=== PATIENT | female | born 1945 | race Caucasian/White ===

== ENCOUNTER 2018-07-10 12:18 | Inpatient (IN) ==
[2018-07-10] MEDS ORDERED: SODIUM CHLORIDE 0.9% 1,000 ML IV STA (12:34)
[2018-07-10 13:16] LABS: Basophils # 0.1 10*3/uL (0.0-0.2); Basophils % 0.5 % (0.0-0.8); Eosinophils % 0.1 % (0.00-10.9); Hematocrit 26.5 VOL% (35.7-47.0); Immature Granulocytes % 0.9 %; Immature Granulocytes Absolute 0.13 #; Lymphocytes # 1.8 10*3/uL (1.4-4.0); Lymphocytes % 12.1 % (21.3-54.2); Mean Corpuscular HGB Conc 30.2 GM/DL (32-36); Mean Corpuscular Hemoglobin 23 PG (27-34); Mean Corpuscular Volume 75.5 FL (87-102); Mean Platelet Volume 10.4 FL (9.6-12.0); Monocytes % 6.6 % (1.7-12.7); Neutrophils # 11.9 10*3/uL (1.4-7.4); Neutrophils % 79.8 % (38.7-73.9); Platelet Count 424 T/CUMM (130-400); Red Blood Count 3.51 MC/CUMM (3.8-5.5); Red Cell Distribution Width 17.2 % (9.3-17.3); White Blood Count 14.9 T/CUMM (4-12)
[2018-07-10 13:32] LABS: PT Patient Result 10.9 SECS
[2018-07-10 13:45] LABS: Albumin 3.9 G/DL (3.4-5.0); Bilirubin,Total 0.6 MG/DL (0.2-1.0); Calcium 8.1 MG/DL (8.5-10.1); Osmolality,Calculated 285.7 MOS/KG (273-304); Potassium 3.9 MMOL/L (3.5-5.1)
[2018-07-10] MEDS ORDERED: ONDANSETRON 4 MG/2 ML VIAL IV PRN (13:57)
[2018-07-10] MEDS ORDERED: NICOTINE 21 MG/24 HR PATCH TRANSDERM PRN (13:57)
[2018-07-10] MEDS ORDERED: ACETAMINOPHEN 325 MG TABLET PO PRN (13:57)
[2018-07-10] MEDS ORDERED: SODIUM CHLORIDE 0.9% 1,000 ML IV PRN (14:01)
[2018-07-10] MEDS: SODIUM CHLORIDE 0.9% 1,000 ML IV SCH (14:52)
[2018-07-10] MEDS: PANTOPRAZOLE 40 MG VIAL IV SCH (14:52)
[2018-07-10] MEDS: SERTRALINE 100 MG TABLET PO SCH (20:18)
[2018-07-10] MEDS: OLANZapine 5 MG TABLET PO SCH (20:18)
[2018-07-10 20:40] LABS: Apearance,Urine CLOUDY (Clear); Bacteria,Urine Few /HPF (Few); Bilirubin,Urine Negative (Negative); Blood, Urine Negative (Negative); Glucose,Urine (UA) Negative (Negative); Hyaline Casts,Urine 9 /LPF (0-3); Ketones,Urine Negative (Negative); Mucus,Urine Few /LPF (Occasional); Nitrite,Urine Negative (Negative); Protein,Urine 30 MG/DL; RBC,Urine 1 /HPF (0-4); Squamous Epithelial Cell,Urine Occasional /HPF (0-10); Urine Color Amber (Yellow); Urine Specific Gravity 1.016 (1.001-1.035); Urine Urobilinogen < 2.0 EU/DL (0.2-1.0); WBC,Urine 1 /HPF (0-6)
[2018-07-11] MEDS ORDERED: SODIUM CHLORIDE 0.9% 1,000 ML IV PRN (01:21)
[2018-07-11] MEDS: LURASIDONE 40 MG TABLET PO SCH ×2 (06:59→20:35)
[2018-07-11] MEDS: PANTOPRAZOLE 40 MG VIAL IV SCH (08:15)
[2018-07-11 10:24] LABS: Hematocrit 31.5 VOL% (35.7-47.0); Hemoglobin 10.1 GM/DL (12.0-16.0)
[2018-07-11 11:54] LABS: Osmolality,Calculated 279.7 MOS/KG (273-304); Potassium 3.9 MMOL/L (3.5-5.1)
[2018-07-11] MEDS ORDERED: PROPOFOL 200 MG/20 ML VIAL IV ONE (12:54)
[2018-07-11] MEDS ORDERED: LIDOCAINE 100 MG/5 ML SYRINGE ONE (12:54)
[2018-07-11] MEDS: SODIUM CHLORIDE 0.9% 1,000 ML IV SCH (16:55)
[2018-07-11 17:02] LABS: Ferritin 13.5 ng/ml (8-252)
[2018-07-11 18:34] LABS: Hematocrit 35.1 VOL% (35.7-47.0)
[2018-07-11] MEDS: SERTRALINE 100 MG TABLET PO SCH (20:35)
[2018-07-11] MEDS: OLANZapine 5 MG TABLET PO SCH (20:35)
[2018-07-12 01:59] LABS: Hematocrit 31.2 VOL% (35.7-47.0)
[2018-07-12 02:06] LABS: Calcium 7.7 MG/DL (8.5-10.1); Osmolality,Calculated 288.1 MOS/KG (273-304); Potassium 3.6 MMOL/L (3.5-5.1)
[2018-07-12 06:18] LABS: Basophils # 0.1 10*3/uL (0.0-0.2); Basophils % 0.8 % (0.0-0.8); Eosinophils # 0.3 10*3/uL (0.0-0.87); Eosinophils % 2.6 % (0.00-10.9); Hematocrit 32.1 VOL% (35.7-47.0); Hemoglobin 10.1 GM/DL (12.0-16.0); Immature Granulocytes % 0.4 %; Immature Granulocytes Absolute 0.04 #; Lymphocytes # 3.4 10*3/uL (1.4-4.0); Lymphocytes % 34.3 % (21.3-54.2); Mean Corpuscular HGB Conc 31.5 GM/DL (32-36); Mean Corpuscular Hemoglobin 24 PG (27-34); Mean Corpuscular Volume 76.4 FL (87-102); Mean Platelet Volume 10.8 FL (9.6-12.0); Monocytes # 0.9 10*3/uL (0.11-0.8); Neutrophils # 5.2 10*3/uL (1.4-7.4); Neutrophils % 52.9 % (38.7-73.9); Platelet Count 405 T/CUMM (130-400); Red Cell Distribution Width 17.7 % (9.3-17.3); White Blood Count 9.8 T/CUMM (4-12)
[2018-07-12] MEDS: PANTOPRAZOLE 40 MG VIAL IV SCH (09:10)
[2018-07-12 09:46] LABS: Hematocrit 35.1 VOL% (35.7-47.0)
[2018-07-12 10:31] VITALS: BP 119/75
== END 2018-07-12 11:42 | disposition home or self-care (01) | DRG 381 ==
LOC: EDUNIT# → EDBD → N.ED 12:18 → N.4E 12:45 → SUATTDRO 13:57 → N.EDINP 13:57 → N.4E 14:27
PROVIDERS: ADMIT Internal Medicine; ATTEND Phlebology

== ENCOUNTER 2021-01-30 22:15 | Observation (INO) ==
[2021-01-30 22:53] LABS: Basophils # 0.1 10*3/uL (0.0-0.2); Basophils % 0.9 % (0.0-0.8); Eosinophils # 0.1 10*3/uL (0.0-0.87); Eosinophils % 0.7 % (0.00-10.9); Hematocrit 35.9 VOL% (35.7-47.0); Hemoglobin 11.2 GM/DL (12.0-16.0); Immature Granulocytes % 0.4 %; Immature Granulocytes Absolute 0.03 #; Lymphocytes # 2.5 10*3/uL (1.4-4.0); Lymphocytes % 32.4 % (21.3-54.2); Mean Corpuscular HGB Conc 31.2 GM/DL (32-36); Mean Corpuscular Volume 87.3 FL (87-102); Mean Platelet Volume 11.4 FL (9.6-12.0); Neutrophils % 55.6 % (38.7-73.9); Platelet Count 290 T/CUMM (130-400); Red Blood Count 4.11 MC/CUMM (3.8-5.5); Red Cell Distribution Width 13.4 % (9.3-17.3); White Blood Count 7.6 T/CUMM (4-12)
[2021-01-30 23:08] LABS: Acetaminophen < 2.0 UG/ML (10-30); Salicylate < 2.8 MG/DL (2.8-20)
[2021-01-30 23:10] LABS: Bacteria,Urine Occasional /HPF (Few); Barbiturates Screen,Urine Negative (Negative); Benzodiazepines Screen,Urine Negative (Negative); Bilirubin,Urine Negative (Negative); Blood, Urine Negative (Negative); Cannabinoid Screen,Urine Negative (Negative); Glucose,Urine (UA) Negative (Negative); Ketones,Urine Negative (Negative); Mucus,Urine Occasional /LPF (Occasional); Nitrite,Urine Negative (Negative); Opiate Screen,Urine Negative (Negative); Phencyclidine Screen,Urine Negative (Negative); Protein,Urine Negative; Urine Appearance CLEAR (Clear); Urine Color Straw (Yellow); Urine Specific Gravity 1.005 (1.001-1.035); Urine Urobilinogen < 2.0 EU/DL (0.2-1.0); WBC,Urine <1 /HPF (0-6)
[2021-01-30 23:13] LABS: Alanine Aminotransferase 13 U/L (13-56); Albumin 3.3 G/DL (3.4-5.0); Alkaline Phosphatase 52 U/L (45-117); Aspartate Amino Transferase 12 U/L (0-37); Bilirubin,Total < 0.39 MG/DL (0.2-1.0); Blood Urea Nitrogen 15 MG/DL (7-18); Calcium 8.7 MG/DL (8.5-10.1); Carbon Dioxide 29 MMOL/L (21-32); Estimated Glom Filtration Rate 59 ML/MIN; Glucose 115 MG/DL (74-106); Osmolality,Calculated 284.1 MOS/KG (273-304); Potassium 3.3 MMOL/L (3.5-5.1); Sodium 142 MMOL/L (136-145); Total Protein 6.9 G/DL (6.4-8.2); Troponin I < 0.015 NG/ML (0.00-0.045)
[2021-01-30 23:40] LABS: Hypochromasia 1+; Platelet Estimate Normal
[2021-01-31] MEDS ORDERED: GLUCAGON 1 MG VIAL IM PRN (02:48)
[2021-01-31] MEDS ORDERED: DEXTROSE 50% 25 GM/50 ML VIAL IV PRN (02:48)
[2021-01-31] MEDS ORDERED: DOCUSATE SODIUM 100 MG CAPSULE PO PRN (02:48)
[2021-01-31] MEDS ORDERED: hydrALAZINE 20 MG/1 ML VIAL IV PRN (02:48)
[2021-01-31] MEDS ORDERED: ACETAMINOPHEN 325 MG TABLET PO PRN (02:48)
[2021-01-31] MEDS ORDERED: ONDANSETRON 4 MG/2 ML VIAL IV PRN (02:48)
[2021-01-31] MEDS: SODIUM CHLORIDE 0.9% 1,000 ML IV SCH ×3 (03:28→19:27)
[2021-01-31] MEDS: POTASSIUM CHLORIDE RIDER 10 MEQ in PREMIX 1 EACH IV PRN ×2 (04:34→06:02)
[2021-01-31 06:50] LABS: Basophils # 0.1 10*3/uL (0.0-0.2); Basophils % 0.9 % (0.0-0.8); Eosinophils # 0.1 10*3/uL (0.0-0.87); Eosinophils % 0.7 % (0.00-10.9); Hematocrit 37.4 VOL% (35.7-47.0); Hemoglobin 11.9 GM/DL (12.0-16.0); Immature Granulocytes % 0.2 %; Immature Granulocytes Absolute 0.02 #; Lymphocytes # 4.6 10*3/uL (1.4-4.0); Lymphocytes % 53.8 % (21.3-54.2); Mean Corpuscular HGB Conc 31.8 GM/DL (32-36); Mean Corpuscular Volume 86.6 FL (87-102); Mean Platelet Volume 11.1 FL (9.6-12.0); Monocytes % 9.1 % (1.7-12.7); Neutrophils % 35.3 % (38.7-73.9); Platelet Count 268 T/CUMM (130-400); Red Blood Count 4.32 MC/CUMM (3.8-5.5); Red Cell Distribution Width 13.3 % (9.3-17.3); White Blood Count 8.5 T/CUMM (4-12)
[2021-01-31 07:05] LABS: Calcium 8.7 MG/DL (8.5-10.1); Osmolality,Calculated 284.8 MOS/KG (273-304); Potassium 4.3 MMOL/L (3.5-5.1)
[2021-01-31 07:11] LABS: Atypical Lymphocytes Few; Eosinophils 1 % (0-10); Hypochromasia 1+; Lymphocytes 56 % (20-55); Microcytosis 1+; Platelet Estimate Adequate; Segmented Neutrophils 36 % (50-85); Total Cells Counted 100
[2021-01-31] MEDS: PANTOPRAZOLE 40 MG TABLET PO SCH (08:34)
[2021-01-31] MEDS ORDERED: SIMVASTATIN 10 MG TABLET PO SCH (21:00)
[2021-02-01] MEDS: SODIUM CHLORIDE 0.9% 1,000 ML IV SCH (03:30)
[2021-02-01] MEDS: PANTOPRAZOLE 40 MG TABLET PO SCH (08:20)
[2021-02-01] MEDS ORDERED: lisinopriL 10 MG TABLET PO SCH (09:00)
[2021-02-01] MEDS ORDERED: HALOPERIDOL 5 MG TABLET PO SCH (09:00)
[2021-02-01 12:36] VITALS: BP 128/82
[2021-02-01] MEDS ORDERED: SERTRALINE 100 MG TABLET PO SCH (21:00)
== END 2021-02-01 13:17 | disposition home health service (06) ==
LOC: EDUNIT# → EDBD → N.ED 22:15 → N.EDINP 22:15 → N.4E 01-31 03:37
PROVIDERS: ADMIT Internal Medicine; ATTEND Internal Medicine

== ENCOUNTER 2022-07-31 13:06 | Inpatient (IN) ==
[2022-07-31] MEDS ORDERED: MORPHINE 2 MG/1 ML SYRINGE IV ONE (13:48)
[2022-07-31] MEDS ORDERED: ONDANSETRON 4 MG/2 ML VIAL IV ONE (13:48)
[2022-07-31] MEDS ORDERED: SODIUM CHLORIDE 0.9% 1,000 ML IV STA (13:48)
[2022-07-31 14:32] LABS: Basophils # 0.1 10*3/uL (0.0-0.2); Basophils % 0.6 % (0.0-0.8); Eosinophils # 0.1 10*3/uL (0.0-0.87); Eosinophils % 0.6 % (0.00-10.9); Hematocrit 36.9 VOL% (35.7-47.0); Hemoglobin 11.6 GM/DL (12.0-16.0); Immature Granulocytes % 0.6 %; Immature Granulocytes Absolute 0.07 #; Lymphocytes # 2.6 10*3/uL (1.4-4.0); Lymphocytes % 21.6 % (21.3-54.2); Mean Corpuscular HGB Conc 31.4 GM/DL (32-36); Mean Corpuscular Volume 97.9 FL (87-102); Mean Platelet Volume 10.6 FL (9.6-12.0); Monocytes # 0.9 10*3/uL (0.11-0.8); Monocytes % 7.1 % (1.7-12.7); Neutrophils % 69.5 % (38.7-73.9); Platelet Count 148 T/CUMM (130-400); Red Blood Count 3.77 MC/CUMM (3.8-5.5); Red Cell Distribution Width 13.6 % (9.3-17.3); White Blood Count 12.1 T/CUMM (4-12)
[2022-07-31 14:41] LABS: PT Patient Result 10.8 SECS (10.1-12.1)
[2022-07-31 14:51] LABS: Albumin 3.4 G/DL (3.4-5.0); Bilirubin,Total 0.4 MG/DL (0.20-1.00); Calcium 8.6 MG/DL (8.5-10.1); Osmolality,Calculated 276.7 MOS/KG (273-304); Potassium 4.4 MMOL/L (3.5-5.1); Total Protein 6.9 G/DL (6.4-8.2)
[2022-07-31 14:52] LABS: Platelet Estimate Decreased
[2022-07-31 15:22] LABS: Bilirubin,Urine Negative (Negative); Blood, Urine Negative (Negative); Glucose,Urine (UA) Negative (Negative); Ketones,Urine Negative (Negative); Nitrite,Urine Negative (Negative); Protein,Urine Negative (Negative); RBC,Urine <1 /HPF (0-4); Squamous Epithelial Cell,Urine Occasional /HPF (0-10); Urine Appearance CLEAR (Clear); Urine Color Yellow (Yellow); Urine Specific Gravity 1.006 (1.001-1.035); Urine Urobilinogen < 2.0 eU/dL (<2.0)
[2022-07-31] MEDS ORDERED: ACETAMINOPHEN 325 MG TABLET PO PRN (15:28)
[2022-07-31] MEDS ORDERED: ONDANSETRON 4 MG/2 ML VIAL IV PRN (15:28)
[2022-07-31] MEDS ORDERED: GLUCAGON 1 MG VIAL IM PRN (15:28)
[2022-07-31] MEDS ORDERED: DEXTROSE 10% 250 ML BAG IV PRN (15:40)
[2022-07-31] MEDS: SODIUM CHLORIDE 0.9% 1,000 ML IV SCH (17:45)
[2022-07-31] MEDS: MORPHINE 2 MG/1 ML SYRINGE IV PRN (17:51)
[2022-07-31] MEDS: AMITRIPTYLINE 50 MG TABLET PO SCH (22:16)
[2022-07-31] MEDS: lisinopriL 10 MG TABLET PO SCH (22:16)
[2022-07-31] MEDS: ILOPERIDONE 4 MG PO SCH (22:18)
[2022-08-01] MEDS: SODIUM CHLORIDE 0.9% 1,000 ML IV SCH ×2 (03:00→16:58)
[2022-08-01] MEDS: MORPHINE 2 MG/1 ML SYRINGE IV PRN (03:01)
[2022-08-01 05:04] LABS: Basophils # 0.1 10*3/uL (0.0-0.2); Basophils % 0.6 % (0.0-0.8); Eosinophils # 0.2 10*3/uL (0.0-0.87); Hematocrit 33.9 VOL% (35.7-47.0); Hemoglobin 10.8 GM/DL (12.0-16.0); Immature Granulocytes % 0.6 %; Immature Granulocytes Absolute 0.06 #; Lymphocytes # 2.4 10*3/uL (1.4-4.0); Mean Corpuscular HGB Conc 31.9 GM/DL (32-36); Mean Corpuscular Volume 94.7 FL (87-102); Mean Platelet Volume 9.9 FL (9.6-12.0); Monocytes % 10.1 % (1.7-12.7); Neutrophils % 61.7 % (38.7-73.9); Platelet Count 277 T/CUMM (130-400); Red Blood Count 3.58 MC/CUMM (3.8-5.5); Red Cell Distribution Width 13.6 % (9.3-17.3); White Blood Count 9.5 T/CUMM (4-12)
[2022-08-01 05:28] LABS: Calcium 8.2 MG/DL (8.5-10.1); Osmolality,Calculated 279.4 MOS/KG (273-304); Potassium 4.2 MMOL/L (3.5-5.1)
[2022-08-01] MEDS ORDERED: ceFAZolin 2,000 MG/50 ML DUPLEX IV ONE (07:30)
[2022-08-01] MEDS ORDERED: BUPIVACAINE MPF 0.25% 30 ML VIAL ONE (09:00)
[2022-08-01] MEDS ORDERED: MIDAZOLAM 2 MG/2 ML VIAL ONE (09:00)
[2022-08-01] MEDS ORDERED: ETOMIDATE 40 MG/20 ML VIAL IV ONE (09:00)
[2022-08-01] MEDS ORDERED: KETAMINE 500 MG/10 ML VIAL ONE (09:00)
[2022-08-01] MEDS ORDERED: TRANEXAMIC ACID 1,000 MG/10 ML VIAL ONE (09:01)
[2022-08-01] MEDS ORDERED: DEXAMETHASONE 4 MG/1 ML VIAL ONE (09:01)
[2022-08-01] MEDS ORDERED: DEXMEDETOMIDINE 200 MCG/2 ML VIAL ONE (09:01)
[2022-08-01] MEDS ORDERED: LIDOCAINE 1% 5 ML VIAL ONE (09:01)
[2022-08-01] MEDS ORDERED: fentaNYL 100 MCG/2 ML VIAL ONE (09:02)
[2022-08-01] MEDS ORDERED: buprenorphine HCL 0.3 MG/ML VIAL ONE (09:35)
[2022-08-01] MEDS ORDERED: PHENYLEPHRINE 1 MG/10 ML SYRINGE IV ONE (09:58)
[2022-08-01] MEDS ORDERED: PHENYLEPHRINE 10 MG/1 ML VIAL IV ONE (10:12)
[2022-08-01] MEDS ORDERED: MAGNESIUM HYDROXIDE SUSP 30 ML UDCUP PO PRN (11:02)
[2022-08-01] MEDS ORDERED: diphenhydrAMINE CAP 25 MG CAPSULE PO PRN (11:12)
[2022-08-01] MEDS ORDERED: LACTULOSE 20 GM/30 ML UDCUP PO PRN (11:12)
[2022-08-01] MEDS ORDERED: PROMETHAZINE 25 MG/1 ML VIAL IM PRN (11:12)
[2022-08-01] MEDS ORDERED: BISACODYL 10 MG SUPP RECTAL PRN (11:12)
[2022-08-01] MEDS ORDERED: TEMAZEPAM 7.5 MG CAPSULE PO PRN (11:12)
[2022-08-01] MEDS ORDERED: MORPHINE 2 MG/1 ML SYRINGE IV PRN ×2 (11:16→11:54)
[2022-08-01] MEDS: DIVALPROEX 250 MG TABLET PO SCH (12:51)
[2022-08-01] MEDS: ILOPERIDONE 4 MG PO SCH ×2 (12:52→20:25)
[2022-08-01] MEDS: PANTOPRAZOLE 40 MG TABLET PO SCH (12:52)
[2022-08-01] MEDS: risperiDONE 1 MG TABLET PO SCH (12:52)
[2022-08-01] MEDS: lisinopriL 10 MG TABLET PO SCH ×2 (12:52→20:25)
[2022-08-01] MEDS: CALCIUM CARBONATE CHEW 500 MG TABLET PO SCH ×2 (12:52→20:25)
[2022-08-01] MEDS: AMITRIPTYLINE 50 MG TABLET PO SCH (20:25)
[2022-08-01] MEDS: DOCUSATE SODIUM 100 MG CAPSULE PO SCH (20:25)
[2022-08-02] MEDS: SODIUM CHLORIDE 0.9% 1,000 ML IV SCH ×2 (03:43→18:45)
[2022-08-02] MEDS: FONDAPARINUX 2.5 MG/0.5 ML SYRINGE SUBCUT SCH (05:27)
[2022-08-02 05:43] LABS: Basophils % 0.1 % (0.0-0.8); Hematocrit 29.5 VOL% (35.7-47.0); Hemoglobin 9.5 GM/DL (12.0-16.0); Immature Granulocytes % 0.8 %; Immature Granulocytes Absolute 0.11 #; Lymphocytes # 1.5 10*3/uL (1.4-4.0); Lymphocytes % 11.1 % (21.3-54.2); Mean Corpuscular HGB Conc 32.2 GM/DL (32-36); Mean Corpuscular Volume 96.1 FL (87-102); Mean Platelet Volume 9.9 FL (9.6-12.0); Monocytes # 1.4 10*3/uL (0.11-0.8); Monocytes % 10.2 % (1.7-12.7); Neutrophils % 77.8 % (38.7-73.9); Platelet Count 262 T/CUMM (130-400); Red Blood Count 3.07 MC/CUMM (3.8-5.5); Red Cell Distribution Width 13.2 % (9.3-17.3); White Blood Count 13.7 T/CUMM (4-12)
[2022-08-02 05:57] LABS: Calcium 8.4 MG/DL (8.5-10.1); Osmolality,Calculated 286.1 MOS/KG (273-304); Potassium 3.9 MMOL/L (3.5-5.1)
[2022-08-02] MEDS ORDERED: GLUCAGON 1 MG VIAL IM PRN (07:14)
[2022-08-02] MEDS ORDERED: DEXTROSE 50% 25 GM/50 ML VIAL IV PRN (07:14)
[2022-08-02] MEDS: DOCUSATE SODIUM 100 MG CAPSULE PO SCH ×2 (08:55→20:29)
[2022-08-02] MEDS: lisinopriL 10 MG TABLET PO SCH ×2 (08:55→20:29)
[2022-08-02] MEDS: CALCIUM CARBONATE CHEW 500 MG TABLET PO SCH ×2 (08:55→20:29)
[2022-08-02] MEDS: PANTOPRAZOLE 40 MG TABLET PO SCH (08:55)
[2022-08-02] MEDS: risperiDONE 1 MG TABLET PO SCH (08:55)
[2022-08-02] MEDS: DIVALPROEX 250 MG TABLET PO SCH (08:55)
[2022-08-02] MEDS ORDERED: NON-FORMULARY MEDICATION (Esomeprazole Magnesium 40 mg capsule,delayed release(DR/EC)) PO SCH (09:00)
[2022-08-02] MEDS: ILOPERIDONE 4 MG PO SCH ×2 (09:06→20:29)
[2022-08-02] MEDS: CHOLECALCIFEROL 5,000 UNIT TABLET PO SCH (12:00)
[2022-08-02] MEDS: AMITRIPTYLINE 50 MG TABLET PO SCH (20:29)
[2022-08-03 04:50] LABS: Basophils # 0.1 10*3/uL (0.0-0.2); Basophils % 0.4 % (0.0-0.8); Eosinophils % 0.3 % (0.00-10.9); Hematocrit 30.8 VOL% (35.7-47.0); Hemoglobin 10.2 GM/DL (12.0-16.0); Immature Granulocytes % 0.8 %; Lymphocytes # 2.6 10*3/uL (1.4-4.0); Lymphocytes % 22.1 % (21.3-54.2); Mean Corpuscular HGB Conc 33.1 GM/DL (32-36); Mean Corpuscular Volume 92.2 FL (87-102); Mean Platelet Volume 9.9 FL (9.6-12.0); Monocytes # 1.6 10*3/uL (0.11-0.8); Monocytes % 13.1 % (1.7-12.7); Neutrophils % 63.3 % (38.7-73.9); Platelet Count 266 T/CUMM (130-400); Red Blood Count 3.34 MC/CUMM (3.8-5.5); Red Cell Distribution Width 13.2 % (9.3-17.3); White Blood Count 11.9 T/CUMM (4-12)
[2022-08-03] MEDS: FONDAPARINUX 2.5 MG/0.5 ML SYRINGE SUBCUT SCH (05:23)
[2022-08-03] MEDS: PANTOPRAZOLE 40 MG TABLET PO SCH (11:14)
[2022-08-03] MEDS: CALCIUM CARBONATE CHEW 500 MG TABLET PO SCH ×2 (11:14→20:48)
[2022-08-03] MEDS: risperiDONE 1 MG TABLET PO SCH (11:14)
[2022-08-03] MEDS: DOCUSATE SODIUM 100 MG CAPSULE PO SCH ×2 (11:15→20:48)
[2022-08-03] MEDS: DIVALPROEX 250 MG TABLET PO SCH (11:15)
[2022-08-03] MEDS: ILOPERIDONE 4 MG PO SCH ×2 (11:16→20:50)
[2022-08-03] MEDS: lisinopriL 10 MG TABLET PO SCH ×2 (11:16→20:48)
[2022-08-03] MEDS: CHOLECALCIFEROL 5,000 UNIT TABLET PO SCH (11:16)
[2022-08-03] MEDS: AMITRIPTYLINE 50 MG TABLET PO SCH (20:48)
[2022-08-04] MEDS: FONDAPARINUX 2.5 MG/0.5 ML SYRINGE SUBCUT SCH (05:16)
[2022-08-04 05:38] LABS: Basophils # 0.1 10*3/uL (0.0-0.2); Basophils % 0.6 % (0.0-0.8); Eosinophils # 0.1 10*3/uL (0.0-0.87); Eosinophils % 0.8 % (0.00-10.9); Hematocrit 28.4 VOL% (35.7-47.0); Hemoglobin 9.4 GM/DL (12.0-16.0); Immature Granulocytes % 1.2 %; Immature Granulocytes Absolute 0.12 #; Lymphocytes # 2.5 10*3/uL (1.4-4.0); Lymphocytes % 25.1 % (21.3-54.2); Mean Corpuscular HGB Conc 33.1 GM/DL (32-36); Mean Corpuscular Volume 91.9 FL (87-102); Mean Platelet Volume 9.7 FL (9.6-12.0); Monocytes # 1.5 10*3/uL (0.11-0.8); Monocytes % 14.9 % (1.7-12.7); Neutrophils % 57.4 % (38.7-73.9); Platelet Count 294 T/CUMM (130-400); Red Blood Count 3.09 MC/CUMM (3.8-5.5); Red Cell Distribution Width 13.3 % (9.3-17.3); White Blood Count 10.1 T/CUMM (4-12)
[2022-08-04] MEDS: CALCIUM CARBONATE CHEW 500 MG TABLET PO SCH (08:12)
[2022-08-04] MEDS: DOCUSATE SODIUM 100 MG CAPSULE PO SCH (08:12)
[2022-08-04] MEDS: DIVALPROEX 250 MG TABLET PO SCH (08:12)
[2022-08-04] MEDS: PANTOPRAZOLE 40 MG TABLET PO SCH (08:12)
[2022-08-04] MEDS: CHOLECALCIFEROL 5,000 UNIT TABLET PO SCH (08:12)
[2022-08-04] MEDS: risperiDONE 1 MG TABLET PO SCH (08:12)
[2022-08-04] MEDS: lisinopriL 10 MG TABLET PO SCH (08:12)
[2022-08-04] MEDS: ILOPERIDONE 4 MG PO SCH (08:13)
[2022-08-04 11:43] VITALS: BP 97/64
== END 2022-08-04 13:18 | disposition home health service (06) | DRG 522 ==
LOC: N.ED 13:06 → N.EDINP 15:28 → SUATTDRO 15:28 → N.3E 16:25
PROVIDERS: ADMIT Internal Medicine; ATTEND Internal Medicine